=== PATIENT | male | born 1955 | race Caucasian/White ===

== ENCOUNTER 2016-10-27 18:09 | Emergency (ER) | payer OTHER ==
[~2016-10-27] VITALS: Ht 182.9 cm; Wt 127.0 kg
[2016-10-27 19:39] VITALS: BP 150/92
[2016-10-27] MEDS ORDERED: IBUPROFEN800 MG PO (19:39)
== END 2016-10-27 19:51 | disposition home or self-care (01) ==
LOC: EME 18:09
DX: S71.111D Laceration without foreign body, right thigh, subsequent encounter (principal); W19.XXXD Unspecified fall, subsequent encounter; Z98.890 Other specified postprocedural states; Z48.01 Encounter for change or removal of surgical wound dressing
CPT/HCPCS: 99281; 99284

== ENCOUNTER 2016-11-28 06:55 | Day surgery (SDC) | payer OTHER ==
[~2016-11-28] VITALS: Ht 182.9 cm; Wt 127.0 kg
[~2016-11-28 06:55] MED LIST: GLUCOPHAGE1000 MG PO; GLUCOTROL10 MG PO; HYZAAR 100-21 TABLET PO; IBUPROFEN800 MG PO; JANUVIA100 MG PO; MOTRIN800 MG PO; SYNTHROID150 MCG PO; TYLENOL EXTRA500 MG PO; ULTRAM50 MG PO
[2016-11-28 08:37] VITALS: BP 159/96
[2016-11-28 08:42] LABS: POINT-OF-CARE METER ID UU14174212
[2016-11-28] MEDS ORDERED: NORCO 5/3251 TABLET PO (09:54)
[2016-11-28 10:00] LABS: POINT-OF-CARE METER ID UU13113675
[2016-11-28 10:18] VITALS: BP 137/84
[2016-11-28 11:07] VITALS: BP 138/87
== END 2016-11-28 11:20 | disposition home or self-care (01) ==
LOC: SDC 06:55
PROVIDERS: Surgery
DX: S70.11XA Contusion of right thigh, initial encounter (principal); W17.89XA Other fall from one level to another, initial encounter; Y92.513 Shop (commercial) as the place of occurrence of the external cause; Y99.0 Civilian activity done for income or pay; E11.9 Type 2 diabetes mellitus without complications; I10 Essential (primary) hypertension; E03.9 Hypothyroidism, unspecified; Z79.84 Long term (current) use of oral hypoglycemic drugs; Z88.6 Allergy status to analgesic agent; Z91.013 Allergy to seafood; Z91.041 Radiographic dye allergy status
CPT/HCPCS: 82948; 88304; 88305; J0690; J2250; J3010

== ENCOUNTER 2017-10-26 10:34 | Emergency (ER) | payer OTHER ==
[~2017-10-26] VITALS: Ht 182.9 cm; Wt 123.0 kg
[~2017-10-26 10:34] MED LIST changes: +CINNAMON500 MG PO; +FLOMAX0.4 MG PO; +NORCO 5/3251 TABLET PO; +PERCOCET 5/31 TABLET PO; +ZOFRAN4 MG PO
[2017-10-26 11:16] LABS: HEMATOCRIT 44.9 % (38.0-50.0); HEMOGLOBIN 16.1 G/DL (12.5-16.6); MCHC 35.9 G/DL (30.0-36.0); MCV 86.5 FL (86-99); PLATELET COUNT 286 K/uL (156-360); RBC DIS.WIDTH-CV 12.7 % (11.8-14.6); RBC DIS.WIDTH-SD 39.8 % (39-53); RED BLOOD COUNT 5.19 M/uL (4.00-5.50)
[2017-10-26 11:24] LABS: CHLORIDE 104 mEq/L (99-109); POTASSIUM 4.3 mEq/L (3.7-5.4); SODIUM 139 mEq/L (136-147)
[2017-10-26 11:26] LABS: GLUCOSE 209 mg/dL (70-99)
[2017-10-26 11:30] LABS: CREATININE 1.2 mg/dL (0.6-1.3); GFR ESTIMATE (CALCULATED) > 59 mL/min/ (58.99-99999); UREA NITROGEN (BUN) 22 mg/dL (9-23)
[2017-10-26 12:44] LABS: APPEARANCE CLOUDY ((CLEAR)); BILIRUBIN NEGATIVE; BLOOD LARGE; COLOR RED ((YELLOW)); GLUCOSE (STRIP) >=500; KETONES NEGATIVE; LEUKOCYTES NEGATIVE; NITRITE NEGATIVE; PROTEIN (STRIP) 100; SPECIFIC GRAVITY 1.022 (1.000-1.030); UROBILINOGEN 0.2 MG/DL (0.2-1.0)
[2017-10-26 12:59] LABS: EPITHELIAL CELLS NONE SEEN /HPF; RED BLOOD CELLS TNTC /HPF (0-5); WHITE BLOOD CELLS NONE SEEN /HPF (0-5)
[2017-10-26 13:00] LABS: BACTERIA NONE SEEN /HPF; MUCUS NONE SEEN /LPF; UCUL ADDED? YES
[2017-10-26] MEDS ORDERED: TYLENOL WITH C1 EACH PO (13:13)
[2017-10-26] MEDS ORDERED: FLOMAX0.4 MG PO (13:13)
[2017-10-26] MEDS ORDERED: MOTRIN600 MG PO (13:13)
[2017-10-26] MEDS ORDERED: ZOFRAN ODT4 MG PO (13:13)
[2017-10-26 13:40] VITALS: BP 150/101
== END 2017-10-26 13:41 | disposition home or self-care (01) ==
LOC: EME 10:34
DX: N13.2 Hydronephrosis with renal and ureteral calculous obstruction (principal); E03.9 Hypothyroidism, unspecified; Z87.442 Personal history of urinary calculi; Z88.6 Allergy status to analgesic agent; Z88.8 Allergy status to other drugs, medicaments and biological substances; Z91.041 Radiographic dye allergy status
CPT/HCPCS: 74176; 80048; 81003; 85027; 87086; 99281; 99285; J1885; J2270; J2405; J7030